=== PATIENT | male | born 1950 | race African-American/Black ===

== ENCOUNTER 2023-03-26 08:24 | Outpatient (CLI) | payer OTHER ==
[2023-03-26] MEDS ORDERED: Magnevist 469MG/ML 20 ML VIAL ONE (10:44)
== END 2023-03-26 08:25 | disposition home or self-care (01) ==
LOC: CSHMRI 08:24
PROVIDERS: ATTEND Urology
DX: C61 Malignant neoplasm of prostate (principal); Z98.890 Other specified postprocedural states
CPT/HCPCS: 72197; 82565; A9579